=== PATIENT | male | born 1945 | race Caucasian/White ===

== ENCOUNTER 2016-09-15 11:55 | Outpatient (CLI) | payer MEDICARE, MEDICAID | END 2016-09-15 11:56 | disposition home or self-care (01) | DX: I63.9 Cerebral infarction, unspecified (principal); E11.9 Type 2 diabetes mellitus without complications; F19.10 Other psychoactive substance abuse, uncomplicated; Z79.899 Other long term (current) drug therapy ==

== ENCOUNTER 2016-09-27 12:51 | Outpatient (CLI) | payer MEDICARE, MEDICAID | END 2016-09-27 12:52 | disposition home or self-care (01) | DX: B19.20 Unspecified viral hepatitis C without hepatic coma (principal); N18.9 Chronic kidney disease, unspecified; R16.0 Hepatomegaly, not elsewhere classified; R18.8 Other ascites ==

== ENCOUNTER 2016-09-27 14:04 | Outpatient (CLI) | payer MEDICARE, MEDICAID | END 2016-09-27 14:05 | disposition home or self-care (01) | DX: I25.10 Atherosclerotic heart disease of native coronary artery without angina pectoris (principal); I08.1 Rheumatic disorders of both mitral and tricuspid valves; B19.20 Unspecified viral hepatitis C without hepatic coma; N18.9 Chronic kidney disease, unspecified; R16.0 Hepatomegaly, not elsewhere classified; R18.8 Other ascites ==

== ENCOUNTER 2016-10-11 08:35 | Outpatient (CLI) | payer MEDICARE, MEDICAID ==
[2016-10-11] MEDS ORDERED: IOPAMIDOL-300 50 ML VIAL PO ONE (11:00)
[2016-10-11] MEDS ORDERED: IOPAMIDOL-300 100 ML VIAL IVP ONE (11:00)
== END 2016-10-11 08:36 | disposition home or self-care (01) ==
DX: K76.9 Liver disease, unspecified (principal)
CPT/HCPCS: 74178; Q9967

== ENCOUNTER 2016-12-15 08:59 | Outpatient (CLI) | payer MEDICARE, MEDICAID ==
[2016-12-15] MEDS ORDERED: IOPAMIDOL-300 100 ML VIAL IVP ONE (11:15)
[2016-12-15] MEDS ORDERED: IOVERSOL-300 50 ML VIAL PO ONE (11:15)
== END 2016-12-15 09:00 | disposition home or self-care (01) ==
DX: R16.0 Hepatomegaly, not elsewhere classified (principal)
CPT/HCPCS: 74177; Q9967

== ENCOUNTER 2017-03-15 15:41 | Outpatient (CLI) | payer MEDICARE, MEDICAID ==
--- NOTE | 2017-03-16 12:26 | XRAY Report ---
CHEST, PA AND LATERAL: 03/15/2017 CLINICAL HISTORY: Possible TB. FINDINGS: Bony thorax shows no significant abnormality. Mild to moderate cardiomegaly is noted with vascular calcification in the aortic arch. Mediastinum i s not widened. Pulmonary parenchyma demonstrates new parenchymal disease in the right lower lobe. I t consists of interstitial parenchymal disease of mild to moderate degree and probably a small focal area of consolidation. These findings were not evident on preceding exam from 07/18/2016. They are most likely compatible with a routine pneumonia rather than TB since the parenchymal disease is locat ed in the right lower lobe. IMPRESSION: 1. MODERATE DEGREE OF CARDIOMEGALY IS ONCE AGAIN NOTED. 2. INTERVAL APPEARANCE OF AN INTERSTITIAL INFILTRATE WITH PROBABLY A SMALL COMPONENT OF CONSOLIDATIO N IN THE RIGHT LOWER LOBE SINCE 07/18/2016. FINDINGS IS OF MODERATE DEGREE. IT MOST LIKELY REPRESEN TS BACTERIAL PNEUMONIA WITH SECONDARY CONSIDERATION BEING A VIRAL PNEUMONIA RATHER THAN TB DISCUSS ED ABOVE. JOB #: [id number] [id number] JOB #:[id number]
== END 2017-03-15 15:42 | disposition home or self-care (01) ==
LOC: DI.N 15:41
PROVIDERS: ATTEND Internal Medicine Nephrology
DX: R91.8 Other nonspecific abnormal finding of lung field (principal); N18.6 End stage renal disease; I51.7 Cardiomegaly
CPT/HCPCS: 71020